=== PATIENT | female | born 1965 | race Two or more races ===

== ENCOUNTER 2018-05-01 17:40 | Inpatient (IN) | payer OTHER ==
[2018-05-01] MEDS ORDERED: NACL 0.9% 3 ML SYG IV (18:30)
[2018-05-01] MEDS ORDERED: hydrALAzine 20 MG INJ IV (18:30)
[2018-05-01] MEDS ORDERED: ACETAMINOPHEN 325 MG TAB PO (18:30)
[2018-05-01] MEDS ORDERED: ONDANSETRON 4 MG INJ IV (18:30)
[2018-05-01] MEDS ORDERED: DEXTROSE 50% 50 ML SYRINGE IV ×2 (19:00)
[2018-05-01] MEDS ORDERED: GLUCOSE GEL 15 GRAM TUBE PO ×2 (19:00)
[2018-05-01] MEDS ORDERED: GLUCAGON 1 MG INJ IM (19:00)
[2018-05-01] MEDS ORDERED: GLUCOSE GEL 15 GRAM TUBE BUCCAL (19:00)
[2018-05-01] MEDS ORDERED: SOD CHLORIDE 0.9% 1,000 ML IV (19:30)
[2018-05-01] MEDS: DEXTROSE 5%-0.45% NACL 1,000 ML IV (19:39)
[2018-05-01 19:52] LABS: ADD MAN DIFF? NO
[2018-05-01 19:53] LABS: WHITE BLOOD COUNT 5.7 10^3/ul (4.8-10.8)
[2018-05-01 19:53] LABS: BASOPHILS % 0.4 % (0.0-2.0); EOSINOPHILS # 0.1 10^3/ul (0.0-0.5); EOSINOPHILS % 1.4 % (0.0-7.0); HEMATOCRIT 35.5 % (37.0-47.0); HEMOGLOBIN 12.1 g/dl (12.0-16.0); LYMPHOCYTES # 1.9 10^3/ul (0.8-2.9); LYMPHOCYTES % 32.4 % (15.0-51.0); MEAN CORPUSCULAR HEMOGLOBIN 29.5 pg (29.0-33.0); MEAN CORPUSCULAR HGB CONC 34.1 g/dl (32.0-37.0); MEAN CORPUSCULAR VOLUME 86.6 fl (82.0-101.0); MEAN PLATELET VOLUME 10.4 fl (7.4-10.4); MONOCYTE # 0.4 10^3/ul (0.3-0.9); MONOCYTES % 7.2 % (0.0-11.0); NEUTROPHIL # 3.3 10^3/ul (1.6-7.5); NEUTROPHILS % 58.2 % (39.0-77.0); PLATELET COUNT 309 10^3/UL (140-415); RED CELL DISTRIBUTION WIDTH 12.3 % (11.5-14.5)
[2018-05-01] MEDS: PIPER-TAZO 3.375 GM IV (PMX) 100 ML IVPB (19:53)
[2018-05-01 20:12] LABS: LIPASE 71 U/L (23-300)
[2018-05-01 20:14] LABS: ALANINE AMINOTRANSFERASE 27 IU/L (13-69); ALBUMIN 3.7 g/dl (3.3-4.9); ALBUMIN/GLOBULIN RATIO 0.97; ALKALINE PHOSPHATASE 62 IU/L (42-121); ANION GAP 10 (5-13); ASPARTATE AMINO TRANSFERASE 37 IU/L (15-46); BILIRUBIN,INDIRECT 0.1 mg/dl (0-1.1); BILIRUBIN,TOTAL 0.1 mg/dl (0.2-1.3); BLOOD UREA NITROGEN 7 mg/dl (7-20); CALCIUM 9.3 mg/dl (8.4-10.2); CARBON DIOXIDE 27 mmol/L (21-31); CHLORIDE 106 mmol/L (97-110); CREATININE 0.56 mg/dl (0.44-1.00); Estimated GFR > 60 mL/min (>60); GLUCOSE 151 mg/dl (70-220); POTASSIUM 3.5 mmol/L (3.5-5.1); SODIUM 143 mmol/L (135-144); TOTAL PROTEIN 7.5 g/dl (6.1-8.1)
[2018-05-01] MEDS: INSULIN ASPART [NOVOLOG] 3 ML PEN SC (21:00)
[2018-05-01] MEDS ORDERED: FAMOTIDINE 20 MG INJ IV (21:00)
[2018-05-01] MEDS: HYDROCODONE/APAP (5/325) TAB PO (21:39)
[2018-05-01] MEDS: INSULIN GLARGINE [LANTus] (100 UNITS/ML) SYG SC (21:42)
[2018-05-01] MEDS: ATORVASTATIN 10 MG TAB PO (21:43)
[2018-05-02] MEDS: PIPER-TAZO 3.375 GM IV (PMX) 100 ML IVPB ×3 (00:36→11:54)
[2018-05-02] MEDS: ACCU-CHEK XX (01:16)
[2018-05-02] MEDS: DEXTROSE 5%-0.45% NACL 1,000 ML IV ×2 (04:53→11:40)
[2018-05-02 05:44] LABS: ADD MAN DIFF? NO
[2018-05-02 05:52] LABS: BASOPHILS % 0.6 % (0.0-2.0); EOSINOPHILS # 0.1 10^3/ul (0.0-0.5); HEMATOCRIT 32.5 % (37.0-47.0); LYMPHOCYTES % 38.4 % (15.0-51.0); MEAN CORPUSCULAR HEMOGLOBIN 29.3 pg (29.0-33.0); MEAN CORPUSCULAR HGB CONC 33.8 g/dl (32.0-37.0); MEAN CORPUSCULAR VOLUME 86.4 fl (82.0-101.0); MEAN PLATELET VOLUME 10.5 fl (7.4-10.4); MONOCYTE # 0.4 10^3/ul (0.3-0.9); MONOCYTES % 7.3 % (0.0-11.0); NEUTROPHIL # 2.6 10^3/ul (1.6-7.5); NEUTROPHILS % 51.5 % (39.0-77.0); PLATELET COUNT 261 10^3/UL (140-415); RED BLOOD COUNT 3.76 10^6/ul (4.20-5.40); RED CELL DISTRIBUTION WIDTH 12.5 % (11.5-14.5)
[2018-05-02 05:52] LABS: WHITE BLOOD COUNT 5.1 10^3/ul (4.8-10.8)
[2018-05-02 06:11] LABS: ALANINE AMINOTRANSFERASE 29 IU/L (13-69); ALBUMIN 3.5 g/dl (3.3-4.9); ALBUMIN/GLOBULIN RATIO 1.09; ALKALINE PHOSPHATASE 50 IU/L (42-121); ANION GAP 7 (5-13); ASPARTATE AMINO TRANSFERASE 49 IU/L (15-46); BILIRUBIN,INDIRECT 0.3 mg/dl (0-1.1); BILIRUBIN,TOTAL 0.3 mg/dl (0.2-1.3); BLOOD UREA NITROGEN 7 mg/dl (7-20); CALCIUM 8.4 mg/dl (8.4-10.2); CARBON DIOXIDE 26 mmol/L (21-31); CHLORIDE 108 mmol/L (97-110); CREATININE 0.59 mg/dl (0.44-1.00); Estimated GFR > 60 mL/min (>60); GLUCOSE 203 mg/dl (70-220); MAGNESIUM 1.8 mg/dl (1.7-2.5); POTASSIUM 3.3 mmol/L (3.5-5.1); SODIUM 141 mmol/L (135-144); TOTAL PROTEIN 6.7 g/dl (6.1-8.1)
[2018-05-02] MEDS: PANTOPRAZOLE (EC) 40 MG TAB PO (06:20)
[2018-05-02] MEDS ORDERED: INSULIN ASPART [NOVOLOG] 3 ML PEN SC (07:35)
[2018-05-02 08:18] LABS: HEMOGLOBIN A1C 9.8 % (0-5.9)
[2018-05-02] MEDS: INSULIN ASPART [NOVOLOG] 3 ML PEN SC ×3 (08:19→17:22)
[2018-05-02] MEDS: NIFEdipine (XL) 30 MG TAB PO ×2 (09:00→15:57)
[2018-05-02] MEDS: LISINOPRIL 20 MG TAB PO ×2 (09:00→15:58)
[2018-05-02] MEDS: FENOFIBRATE 145 MG TAB PO ×2 (09:00→15:58)
[2018-05-02] MEDS: POTASSIUM CHLORIDE 100 ML IVPB ×2 (12:45→15:49)
[2018-05-02] MEDS: morphine 2 MG INJ IV (13:42)
[2018-05-02 14:33] LABS: ADD UMIC NO; UR ASCORBIC ACID NEGATIVE (NEGATIVE); UR BILIRUBIN (Dip) NEGATIVE (NEGATIVE); UR BLOOD (Dip) NEGATIVE (NEGATIVE); UR CLARITY CLEAR (CLEAR); UR COLOR YELLOW (YELLOW); UR GLUCOSE (Dip) NEGATIVE (NEGATIVE); UR KETONES (Dip) NEGATIVE (NEGATIVE); UR LEUKOCYTE ESTERASE (Dip) NEGATIVE Leu/ul (NEGATIVE); UR NITRITE (Dip) NEGATIVE (NEGATIVE); UR SPECIFIC GRAVITY (Dip) 1.013 (1.003-1.030); UR TOTAL PROTEIN (Dip) NEGATIVE (NEGATIVE); UR UROBILINOGEN (Dip) NEGATIVE (NEGATIVE)
[2018-05-02] MEDS: POLYETHYLENE GLYCOL 17 GM PACKET PO (16:30)
[2018-05-02] MEDS: METOCLOPRAMIDE 10 MG INJ IV (17:13)
[2018-05-02] MEDS: SUCRALFATE (100 MG/ML) 10ML CUP PO ×2 (17:13→20:43)
[2018-05-02] MEDS: LIDOCAINE/MYLANTA 40 ML BTL PO (18:25)
[2018-05-02] MEDS: HYOSCYAMINE 0.125 MG TAB PO (18:25)
[2018-05-02] MEDS: HYDROCODONE/APAP (5/325) TAB PO (20:43)
[2018-05-02] MEDS: ATORVASTATIN 10 MG TAB PO (20:43)
[2018-05-02] MEDS: INSULIN GLARGINE [LANTus] (100 UNITS/ML) SYG SC (20:44)
[2018-05-03] MEDS: HYOSCYAMINE 0.125 MG TAB PO ×4 (00:31→12:54)
[2018-05-03] MEDS: METOCLOPRAMIDE 10 MG INJ IV ×4 (00:31→17:34)
[2018-05-03] MEDS: ACCU-CHEK XX (02:00)
[2018-05-03] MEDS ORDERED: ACCU-CHEK XX (02:00)
[2018-05-03] MEDS ORDERED: PANTOPRAZOLE 40 MG INJ IV (06:00)
[2018-05-03] MEDS: PANTOPRAZOLE 40 MG INJ IV ×3 (06:00→20:32)
[2018-05-03] MEDS: INSULIN ASPART [NOVOLOG] 3 ML PEN SC ×4 (08:00→20:33)
[2018-05-03] MEDS: SUCRALFATE (100 MG/ML) 10ML CUP PO ×4 (09:08→20:31)
[2018-05-03] MEDS: FENOFIBRATE 145 MG TAB PO (09:08)
[2018-05-03] MEDS: NIFEdipine (XL) 30 MG TAB PO (09:09)
[2018-05-03] MEDS: LISINOPRIL 20 MG TAB PO (09:10)
[2018-05-03] MEDS: POLYETHYLENE GLYCOL 17 GM PACKET PO (09:10)
[2018-05-03 09:43] LABS: ADD MAN DIFF? NO
[2018-05-03 09:49] LABS: BASOPHILS % 0.6 % (0.0-2.0); EOSINOPHILS # 0.1 10^3/ul (0.0-0.5); EOSINOPHILS % 1.7 % (0.0-7.0); HEMATOCRIT 36.2 % (37.0-47.0); HEMOGLOBIN 12.4 g/dl (12.0-16.0); LYMPHOCYTES # 1.8 10^3/ul (0.8-2.9); LYMPHOCYTES % 33.8 % (15.0-51.0); MEAN CORPUSCULAR HEMOGLOBIN 29.7 pg (29.0-33.0); MEAN CORPUSCULAR HGB CONC 34.3 g/dl (32.0-37.0); MEAN CORPUSCULAR VOLUME 86.6 fl (82.0-101.0); MEAN PLATELET VOLUME 10.2 fl (7.4-10.4); MONOCYTE # 0.4 10^3/ul (0.3-0.9); MONOCYTES % 7.7 % (0.0-11.0); NEUTROPHIL # 2.9 10^3/ul (1.6-7.5); NEUTROPHILS % 55.8 % (39.0-77.0); PLATELET COUNT 303 10^3/UL (140-415); RED BLOOD COUNT 4.18 10^6/ul (4.20-5.40); RED CELL DISTRIBUTION WIDTH 12.2 % (11.5-14.5)
[2018-05-03 09:49] LABS: WHITE BLOOD COUNT 5.2 10^3/ul (4.8-10.8)
[2018-05-03 10:07] LABS: ANION GAP 9 (5-13); BLOOD UREA NITROGEN 7 mg/dl (7-20); CALCIUM 9.2 mg/dl (8.4-10.2); CARBON DIOXIDE 27 mmol/L (21-31); CHLORIDE 107 mmol/L (97-110); CREATININE 0.57 mg/dl (0.44-1.00); Estimated GFR > 60 mL/min (>60); GLUCOSE 146 mg/dl (70-220); MAGNESIUM 1.8 mg/dl (1.7-2.5); PHOSPHORUS 3.5 mg/dl (2.5-4.9); POTASSIUM 3.3 mmol/L (3.5-5.1); SODIUM 143 mmol/L (135-144)
[2018-05-03] MEDS: POTASSIUM CHLORIDE 20 MEQ POWDER FOR ORAL SOLN PO (12:54)
[2018-05-03] MEDS: HYDROCODONE/APAP (5/325) TAB PO (16:55)
[2018-05-03] MEDS: ATORVASTATIN 10 MG TAB PO (20:31)
[2018-05-03] MEDS: INSULIN GLARGINE [LANTus] (100 UNITS/ML) SYG SC (20:34)
[2018-05-04] MEDS: METOCLOPRAMIDE 10 MG INJ IV ×3 (00:11→12:00)
[2018-05-04] MEDS: HYOSCYAMINE 0.125 MG TAB PO ×3 (00:11→12:00)
[2018-05-04] MEDS: ACCU-CHEK XX (02:00)
[2018-05-04 05:22] LABS: ADD MAN DIFF? NO
[2018-05-04 05:31] LABS: WHITE BLOOD COUNT 5.1 10^3/ul (4.8-10.8)
[2018-05-04 05:31] LABS: BASOPHILS % 0.8 % (0.0-2.0); EOSINOPHILS # 0.1 10^3/ul (0.0-0.5); HEMATOCRIT 35.8 % (37.0-47.0); HEMOGLOBIN 12.4 g/dl (12.0-16.0); LYMPHOCYTES # 1.9 10^3/ul (0.8-2.9); LYMPHOCYTES % 38.1 % (15.0-51.0); MEAN CORPUSCULAR HEMOGLOBIN 29.7 pg (29.0-33.0); MEAN CORPUSCULAR HGB CONC 34.6 g/dl (32.0-37.0); MEAN CORPUSCULAR VOLUME 85.9 fl (82.0-101.0); MEAN PLATELET VOLUME 10.6 fl (7.4-10.4); MONOCYTE # 0.5 10^3/ul (0.3-0.9); MONOCYTES % 9.7 % (0.0-11.0); NEUTROPHIL # 2.5 10^3/ul (1.6-7.5); NEUTROPHILS % 49.2 % (39.0-77.0); PLATELET COUNT 315 10^3/UL (140-415); RED BLOOD COUNT 4.17 10^6/ul (4.20-5.40); RED CELL DISTRIBUTION WIDTH 12.2 % (11.5-14.5)
[2018-05-04 05:52] LABS: ANION GAP 7 (5-13); BLOOD UREA NITROGEN 8 mg/dl (7-20); CALCIUM 9.1 mg/dl (8.4-10.2); CARBON DIOXIDE 29 mmol/L (21-31); CHLORIDE 105 mmol/L (97-110); Estimated GFR > 60 mL/min (>60); GLUCOSE 131 mg/dl (70-220); PHOSPHORUS 3.8 mg/dl (2.5-4.9); POTASSIUM 3.5 mmol/L (3.5-5.1); SODIUM 141 mmol/L (135-144)
[2018-05-04] MEDS: INSULIN ASPART [NOVOLOG] 3 ML PEN SC ×2 (08:00→12:00)
[2018-05-04] MEDS: POLYETHYLENE GLYCOL 17 GM PACKET PO (09:00)
[2018-05-04] MEDS: PANTOPRAZOLE 40 MG INJ IV (10:23)
[2018-05-04] MEDS: SUCRALFATE (100 MG/ML) 10ML CUP PO (10:23)
[2018-05-04] MEDS: FENOFIBRATE 145 MG TAB PO (10:23)
[2018-05-04] MEDS: LISINOPRIL 20 MG TAB PO (10:24)
[2018-05-04] MEDS: NIFEdipine (XL) 30 MG TAB PO (10:24)
== END 2018-05-04 11:55 | disposition home or self-care (01) | DRG 392 ==
LOC: PP2 17:40
DX: K29.70 Gastritis, unspecified, without bleeding (principal); E11.40 Type 2 diabetes mellitus with diabetic neuropathy, unspecified; E78.5 Hyperlipidemia, unspecified; I10 Essential (primary) hypertension; E87.6 Hypokalemia; E66.3 Overweight; K59.00 Constipation, unspecified; Z68.29 Body mass index [BMI] 29.0-29.9, adult
CPT/HCPCS: 78226; 80048; 80053; 81003; 82962; 83036; 83690; 83735; 84100; 84703; 85025; 87338